=== PATIENT | male | born 1990 | race Caucasian/White ===

== ENCOUNTER 2017-01-02 02:54 | Emergency (ER) | payer OTHER ==
[~2017-01-02] VITALS: Ht 177.8 cm; Wt 75.0 kg
[~2017-01-02 02:54] MED LIST: NAPR550 PO; Z.0.NO CURRENT MEDS
[2017-01-02 03:03] VITALS: BP 142/85; PULSE 91; RESP 16; TEMP 98.2; O2SAT 99
--- NOTE | 2017-01-02 03:08 | PD ---
HPI Chief Complaint: psychiatric evaluation Time Seen by Provider: 03:03 Travel History International Travel<30 days: No Contact w/Intl Traveler<30days: No History of Present Illness HPI Patient comes to the emergency Department under Valle act by police for allegedly suicidal statements. Patient states he was feeling like harming himself because they're going take him to group home, but now that he is here the is not having any thoughts of suicide or homicidal ideations. Patient does admit to drinking tonight but states it was not that much. Patient denies any medical complaints at this time. Denies any chest pain or shortness of breath, fevers, abdominal pain, back pain or neck pain, or headache. Patient appears intoxicated. PFSH Past Medical History Medical History: Denies Significant Hx Diminished Hearing: No Social History Alcohol Use: Yes Tobacco Use: Yes Substance Use: No Allergies-Medications (Allergen,Severity, Reaction): Coded Allergies: Sulfa (Verified Allergy, Mild, Rash, 01/02/17) Reported Meds & Prescriptions Reported Meds & Active Scripts Active Review of Systems ROS Limitations: Intoxication Except as stated in HPI: all other systems reviewed are Neg Physical Exam Exam Limitations: Intoxication Narrative GENERAL: Well-developed, well nourished, in no acute distress, and non-ill appearing. SKIN: Focused skin assessment warm and dry. HEAD: Atraumatic. Normocephalic. EYES: Pupils equal and round. EOMI. No scleral icterus. No injection or drainage. ENT: No nasal bleeding or discharge. Mucous membranes pink and moist. NECK: Trachea midline. Supple. No nuclear rigidity. CARDIOVASCULAR: Regular rate and rhythm. No murmur appreciated. RESPIRATORY: No accessory muscle use. No respiratory distress. Clear to auscultation. Breath sounds equal bilaterally. MUSCULOSKELETAL: No obvious deformities. No clubbing. No cyanosis. No edema. Full range of motion. NEUROLOGICAL: Awake and alert. No obvious cranial nerve deficits. Motor grossly within normal limits. Normal speech. PSYCHIATRIC: Appropriate mood and affect. Data Data Last Documented VS Vital Signs Date Time Temp Pulse Resp B/P Pulse Ox O2 Delivery O2 Flow Rate FiO2 01/02/17 03:03 98.2 91 16 142/85 99 Orders Complete Blood Count With Diff (01/02/17 03:02) Comprehensive Metabolic Panel (01/02/17 03:02) Psych Screen (01/02/17 03:02) Drug Screen, Random Urine (01/02/17 03:02) Alcohol (Ethanol) (01/02/17 03:02) Salicylates (Aspirin) (01/02/17 03:02) Tylenol (Acetaminophen) (01/02/17 03:02) Labs Laboratory Tests Test 01/02/17 03:05 White Blood Count 7.3 TH/MM3 Red Blood Count 5.39 MIL/MM3 Hemoglobin 16.9 GM/DL Hematocrit 48.2 % Mean Corpuscular Volume 89.4 FL Mean Corpuscular Hemoglobin 31.3 PG Mean Corpuscular Hemoglobin 35.0 % Concent Red Cell Distribution Width 12.7 % Platelet Count 324 TH/MM3 Mean Platelet Volume 7.0 FL Neutrophils (%) (Auto) 47.4 % Lymphocytes (%) (Auto) 41.1 % Monocytes (%) (Auto) 10.0 % Eosinophils (%) (Auto) 0.6 % Basophils (%) (Auto) 0.9 % Neutrophils # (Auto) 3.5 TH/MM3 Lymphocytes # (Auto) 3.0 TH/MM3 Monocytes # (Auto) 0.7 TH/MM3 Eosinophils # (Auto) 0.0 TH/MM3 Basophils # (Auto) 0.1 TH/MM3 CBC Comment DIFF FINAL Differential Comment Sodium Level 142 MEQ/L Potassium Level 3.9 MEQ/L Chloride Level 105 MEQ/L Carbon Dioxide Level 26.1 MEQ/L Anion Gap 11 MEQ/L Blood Urea Nitrogen 7 MG/DL Creatinine 1.06 MG/DL Estimat Glomerular Filtration 86 ML/MIN Rate Random Glucose 92 MG/DL Calcium Level 8.9 MG/DL Total Bilirubin 0.5 MG/DL Aspartate Amino Transf 23 U/L (AST/SGOT) Alanine Aminotransferase 25 U/L (ALT/SGPT) Alkaline Phosphatase 67 U/L Total Protein 8.6 GM/DL Albumin 4.7 GM/DL Salicylates Level LESS THAN 1.7 MG/DL Urine Opiates Screen NEG Acetaminophen Level LESS THAN 2.0 MCG/ML Urine Barbiturates Screen NEG Urine Amphetamines Screen NEG Urine Benzodiazepines Screen NEG Urine Cocaine Screen NEG Urine Cannabinoids Screen NEG Ethyl Alcohol Level 239 MG/DL MDM Medical Decision Making Medical Screen Exam Complete: Yes Emergency Medical Condition: Yes Differential Diagnosis Homicidal, suicidal, alcohol intoxication, substance abuse, other Narrative Course Patient was seen and examined. Labs were obtained and reviewed. Patient medically cleared for further treatment and evaluation by psych. Final disposition per psych. Diagnosis Primary Impression: Alcohol intoxication Qualified Code: F10.920 - Alcohol intoxication, uncomplicated Additional Impression: Medical clearance for psychiatric admission Condition: Stable Arslan Goss Jan 02, 2017 03:08
[2017-01-02 03:21] LABS: AUTOMATED NEUTROPHIL # 3.5 TH/MM3 (1.8-7.7); BASOPHIL # 0.1 TH/MM3 (0-0.2); BASOPHIL % 0.9 % (0.0-2.0); EOSINOPHIL % 0.6 % (0.0-4.0); HEMATOCRIT 48.2 % (39.0-51.0); HEMO FLAGS DIFF FINAL; LYMPH % 41.1 % (9.0-44.0); MEAN CELL VOLUME 89.4 FL (80.0-100.0); MEAN CORPUSCULAR HEMOGLOBIN 31.3 PG (27.0-34.0); NEUT % 47.4 % (16.0-70.0); PLATELET COUNT 324 TH/MM3 (150-450); RED BLOOD COUNT 5.39 MIL/MM3 (4.50-5.90); RED CELL DISTRIBUTION WIDTH 12.7 % (11.6-17.2); WHITE BLOOD COUNT 7.3 TH/MM3 (4.0-11.0)
[2017-01-02 03:28] LABS: AMPHETAMINE, URINE NEG (NEG); BARBITURATES, URINE NEG (NEG); COCAINE, URINE NEG (NEG)
[2017-01-02 03:45] LABS: ALT (GPT) 25 U/L (12-78); ANION GAP 11 MEQ/L (5-15); AST (GOT) 23 U/L (15-37); BICARBONATE 26.1 MEQ/L (21.0-32.0); BLOOD UREA NITROGEN 7 MG/DL (7-18); CHLORIDE 105 MEQ/L (98-107); GLOMERULAR FILTRATION RATE 86 ML/MIN (>89); POTASSIUM 3.9 MEQ/L (3.5-5.1); SODIUM (NA) 142 MEQ/L (136-145)
[2017-01-02 03:47] LABS: ALKALINE PHOSPHATASE 67 U/L (45-117); TOTAL BILIRUBIN ADULT 0.5 MG/DL (0.2-1.0)
[2017-01-02 04:02] LABS: ACETAMINOPHEN LESS THAN 2.0 MCG/ML (10.0-30.0)
[2017-01-02 06:59] VITALS: BP 137/79; PULSE 97; RESP 17; O2SAT 98
--- NOTE | 2017-01-02 16:38 | PD ---
History of Present Illness Chief Complaint: Psychiatric Symptoms Time Seen by Provider: 16:15 Travel History International Travel<30 Days: No Contact w/Intl Traveler<30days: No Known affected area: No Legal Status Legal Status: Valle Act Valle Act Signed By: Felicia Velásquez History of Present Illness: HPI Patient is a 26 year old male with no previous psychiatric history who presents under a BA initiated by ALIYA. The report alleges that the patient made statements to his mother that he wanted to kill himself and that he was planning on buying a gun to shoot himself. As per ED documentation which is reviewed " Patient states he was feeling like harming himself because they' re going take him to detention, but now that he is here the is not having any thoughts of suicide or homicidal ideations." On admission to the ED her BAl was 239. EMR reviewed. There [place] [facility] [place] The patient was maintained in [facility] until he became clinically sober. He has not had any behavioral concerns or suicidality. Patient is seen. He is clinically sober. Speech is clear. He is calm and cooperative. He states : I don't want to kill myself or anyone else". I was mad and drunk and was arguing with my mother. I was also upset over my recent breakup".He does not present any psychosis and no saeed. He denies any previous or current psychiatric treatment. PFSH Past Medical History Medical History: Denies Significant Hx Diminished Hearing: No Immunizations Current: Yes Tetanus Vaccination: Unknown Influenza Vaccination: No Psychiatric History Psychiatric History Hx Psychiatric Treatment: None reported History of Inpatient Treatment: No Guns or firearms in home: No Social History Single male. will be living with his mother. Works in construction. Hx Alcohol Use: Yes Hx Tobacco Use: Yes Hx Substance Use: No Substance Use Type: Alcohol (He pancho that he d rinks on a daily basis. ) Hx of Substance Use Treatment: No Family Psychiatric History Negative Allergies-Medications (Allergen,Severity, Reaction): Coded Allergies: Sulfa (Verified Allergy, Mild, Rash, 01/02/17) Reported Meds & Prescriptions Reported Meds & Active Scripts Active Review of Systems Except as stated in HPI: all other systems reviewed are Neg Exam Alert: Yes [place]: Person (ox4) Mood: Calm Affect: Appropriate Speech: Clear, Logical Eye Contact: Normal Memory Intact: Comment (No impairmetn) Hallucinations: Other (Negative) Delusions: No Suicidal: Ideation (deneis) Homicidal: Ideation (deneis any) Insight/Judgement poor. not impaired. MDM Medical Decision Making Medical Record Reviewed: Yes Assessment/Plan Patient is a 26 year old male with no previous psychiatric history who presents under a BA initiated by ALIYA. The report alleges that the patient made statements to his mother that he wanted to kill himself and that he was planning on buying a gun to shoot himself. Once clinically sober he denies any suicidal or homicidal ideation, intent or plan. He is requesting discharge and does not meet criteria for BA I have counseled him on abstinence from ETOh. on Orders Complete Blood Count With Diff (01/02/17 03:02) Comprehensive Metabolic Panel (01/02/17 03:02) Psych Screen (01/02/17 03:02) Drug Screen, Random Urine (01/02/17 03:02) Alcohol (Ethanol) (01/02/17 03:02) Salicylates (Aspirin) (01/02/17 03:02) Tylenol (Acetaminophen) (01/02/17 03:02) Diet Regular Basic (01/02/17 Breakfast) Diet Regular Basic (01/02/17 Dinner) Results Vital Signs Date Time Temp Pulse Resp B/P Pulse Ox O2 Delivery O2 Flow Rate FiO2 01/02/17 06:59 97 17 137/79 98 Room Air 01/02/17 03:03 98.2 91 16 142/85 99 Laboratory Tests Test 01/02/17 03:05 White Blood Count 7.3 Red Blood Count 5.39 Hemoglobin 16.9 Hematocrit 48.2 Mean Corpuscular Volume 89.4 Mean Corpuscular Hemoglobin 31.3 Mean Corpuscular Hemoglobin 35.0 Concent Red Cell Distribution Width 12.7 Platelet Count 324 Mean Platelet Volume 7.0 Neutrophils (%) (Auto) 47.4 Lymphocytes (%) (Auto) 41.1 Monocytes (%) (Auto) 10.0 Eosinophils (%) (Auto) 0.6 Basophils (%) (Auto) 0.9 Neutrophils # (Auto) 3.5 Lymphocytes # (Auto) 3.0 Monocytes # (Auto) 0.7 Eosinophils # (Auto) 0.0 Basophils # (Auto) 0.1 CBC Comment DIFF FINAL Differential Comment Sodium Level 142 Potassium Level 3.9 Chloride Level 105 Carbon Dioxide Level 26.1 Anion Gap 11 Blood Urea Nitrogen 7 Creatinine 1.06 Estimat Glomerular Filtration 86 Rate Random Glucose 92 Calcium Level 8.9 Total Bilirubin 0.5 Aspartate Amino Transf 23 (AST/SGOT) Alanine Aminotransferase 25 (ALT/SGPT) Alkaline Phosphatase 67 Total Protein 8.6 Albumin 4.7 Salicylates Level LESS THAN 1.7 Urine Opiates Screen NEG Acetaminophen Level LESS THAN 2.0 Urine Barbiturates Screen NEG Urine Amphetamines Screen NEG Urine Benzodiazepines Screen NEG Urine Cocaine Screen NEG Urine Cannabinoids Screen NEG Ethyl Alcohol Level 239 Diagnosis Primary Impression: Alcohol intoxication Psychiatrically Cleared: Yes Departure Forms: Tests/Procedures Patient Instructions: General Instructions, Abuse of Alcohol (ED) Additional Instructions: REFRAIN FROM USING ALCOHOL. YOU MAY FIND AA MEETINGS HELPFUL Disposition: 01 DISCHARGE HOME Condition: Stable Problem Qualifiers Primary Impression: Alcohol intoxication Qualified Code: F10.920 - Alcohol intoxication, uncomplicated Loly Lee [facility] Jan 02, 2017 16:38
== END 2017-01-02 17:16 | disposition home or self-care (01) ==
LOC: NEPD 02:54 → NEPJ 17:16
DX: F10.129 Alcohol abuse with intoxication, unspecified (principal); Z87.891 Personal history of nicotine dependence; Z88.2 Allergy status to sulfonamides
CPT/HCPCS: 80053; 80307; 85025; 99283

== ENCOUNTER 2017-01-04 03:26 | Emergency (ER) | payer OTHER ==
[~2017-01-04] VITALS: Ht 175.3 cm; Wt 78.0 kg
[2017-01-04 03:28] VITALS: BP 133/86; PULSE 96; RESP 16; TEMP 98.1; O2SAT 99
--- NOTE | 2017-01-04 04:01 | PD ---
HPI Chief Complaint: Psychiatric Symptoms Time Seen by Provider: 03:40 Travel History International Travel<30 days: No Contact w/Intl Traveler<30days: No Traveled to known affect area: No History of Present Illness HPI Patient comes back to emergency department requesting psychiatric evaluation for suicidal ideations. Patient is here with his mother states that he woke her up tonight requesting to be brought back to the hospital for further psychiatric evaluation. Patient reports he felt like he should've left the hospital. States that he lied to get released from the hospital. Patient's mother states that he has been reporting thoughts of suicide since May but has not received any treatment. Patient denies any definitive plan or previous attempts. Patient denies anything making his symptoms better or worse. Denies any medical concerns this time. Denies any chest pain, shortness breath, nausea , vomiting, abdominal pain, fevers, or headaches. PFSH Past Medical History Medical History: Denies Significant Hx Diminished Hearing: No Immunizations Current: Yes Past Surgical History Surgical History: No Previous Surgery Social History Alcohol Use: Yes (OCC) Tobacco Use: Yes (1 PPD) Substance Use: No Allergies-Medications (Allergen,Severity, Reaction): Coded Allergies: Sulfa (Verified Allergy, Mild, Rash, 01/04/17) Reported Meds & Prescriptions Reported Meds & Active Scripts Active Review of Systems Except as stated in HPI: all other systems reviewed are Neg Physical Exam Narrative GENERAL: Well-developed, well nourished, in no acute distress, and non-ill appearing. SKIN: Focused skin assessment warm and dry. HEAD: Atraumatic. Normocephalic. EYES: Pupils equal and round. EOMI. No scleral icterus. No injection or drainage. ENT: No nasal bleeding or discharge. Mucous membranes pink and moist. NECK: Trachea midline. No JVD. Supple. No nuclear rigidity. CARDIOVASCULAR: Regular rate and rhythm. No murmur appreciated. RESPIRATORY: No accessory muscle use. No respiratory distress. Clear to auscultation. Breath sounds equal bilaterally. MUSCULOSKELETAL: No obvious deformities. No clubbing. No cyanosis. No edema. Full range of motion. NEUROLOGICAL: Awake and alert. No obvious cranial nerve deficits. Motor grossly within normal limits. Normal speech. PSYCHIATRIC: Appropriate mood and affect; insight and judgment normal. Data Data Last Documented VS Vital Signs Date Time Temp Pulse Resp B/P Pulse Ox O2 Delivery O2 Flow Rate FiO2 7/26/17 03:28 98.1 96 16 133/86 99 MDM Medical Decision Making Medical Screen Exam Complete: Yes Emergency Medical Condition: Yes Differential Diagnosis Homicidal, suicidal, depression, nonspecific mood disorder, other Narrative Course Patient was seen and examined. I discussed with patient and his mother regarding staying here to be evaluated by a psychiatrist versus taking him home to follow up at [facility] tomorrow. They're wanting to stay here to see a psychiatrist. Patient is asking about possible inpatient placement. Labs were reviewed from 2 days ago. I do not see a need at this time for additional laboratory work up. Patient medically cleared for further treatment and evaluation by psych. Final disposition per psych. Diagnosis Primary Impression: Medical clearance for psychiatric admission Condition: Stable Arslan Goss Jan 04, 2017 04:01
[2017-01-04 07:00] VITALS: BP 132/82; PULSE 76; RESP 16; TEMP 98; O2SAT 99
[2017-01-04 11:27] VITALS: BP 132/86; PULSE 77; RESP 18; O2SAT 98
== END 2017-01-04 13:10 | disposition home or self-care (01) ==
LOC: NEPD 03:26 → NEPJ 13:10
DX: R45.851 Suicidal ideations (principal); F17.200 Nicotine dependence, unspecified, uncomplicated; Z88.2 Allergy status to sulfonamides
CPT/HCPCS: 99284